=== PATIENT | male | born 1990 ===

== ENCOUNTER 2019-09-16 18:45 | Emergency (ER) | payer OTHER ==
[2019-09-16 18:57] VITALS: BP 135/73; PULSE 105
--- NOTE | 2019-09-16 19:19 | EDM.PDOC ---
ED HPI GENERAL MEDICAL PROBLEM - General Chief Complaint: Upper Extremity Injury/Pain Stated Complaint: RIGHT WRIST Time Seen by Provider: 09/16/19 19:17 Source of Information: Reports: Patient History Limitations: Reports: No Limitations - History of Present Illness INITIAL COMMENTS - FREE TEXT/NARRATIVE: HISTORY AND PHYSICAL: History of present illness: Patient is a 29-year-old male presents to the ED with complaint of right wrist injury. 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 He states he tried catching himself with his hands and injured his right wrist. He states it has progressively gotten more swollen over the past few hours. He denies head or other injury. Review of systems: As per history of present illness and below otherwise all systems reviewed and negative. Past medical history: As per history of present illness and as reviewed below otherwise noncontributory. Surgical history: As per history of present illness and as reviewed below otherwise noncontributory. Social history: No reported history of drug or alcohol abuse. Family history: As per history of present illness and as reviewed below otherwise noncontributory. Physical exam: General: Patient sitting comfortably in no acute distress and nontoxic appearing HEENT: Atraumatic, normocephalic, pupils reactive, negative for conjunctival pallor or scleral icterus, mucous membranes moist, throat clear, neck supple, nontender, trachea midline. No meningeal signs. Lungs: Clear to auscultation, breath sounds equal bilaterally, chest nontender. Heart: S1S2, regular, negative for clicks, rubs, or overt murmur. Abdomen: Soft, nondistended, nontender. Negative for masses or hepatosplenomegaly. Negative for costovertebral tenderness. No rigidity, rebound , guarding. Pelvis: Stable nontender. Genitourinary: Deferred. Rectal: Deferred. Extremities: Swelling to the right wrist without obvious deformity. Skin is intact. Pain to palpation of distal radius and ulna. negative for cords or calf pain. Neurovascular unremarkable. Neuro: Awake, alert, oriented. Cranial nerves II through XII unremarkable. Cerebellum unremarkable. Motor and sensory unremarkable throughout. Exam nonfocal. Notes: Diagnostics: x-ray right wrist and hand Therapeutics: Splint Prescriptions: none Impression: 1. Ice, elevate, and motrin or tylenol as needed 2. Follow up with orthopedics, please call the number provided to schedule an appointment 3. Return to ED as needed as discussed Definitive disposition and diagnosis as appropriate pending reevaluation and review of above. Right Wrist Pain Score (Numeric/FACES): 8 - Related Data Allergies Allergy/AdvReac Type Severity Reaction Status Date / Time No Known Allergies Allergy Verified 09/16/19 18:54 Home Meds: Home Meds . [No Known Home Meds] 03/03/16 [History] Past Medical History - Past Health History Medical/Surgical History: Denies Medical/Surgical History - Infectious Disease History Infectious Disease History: Reports: Chicken Pox Social & Family History - Family History Family Medical History: Noncontributory - Tobacco Use Smoking Status *Q: Former Smoker Used Tobacco, but Quit: Yes Month/Year Tobacco Last Used: 2018 - Caffeine Use Caffeine Use: Reports: Coffee - Recreational Drug Use Recreational Drug Use: No Review of Systems - Review of Systems Review Of Systems: Comprehensive ROS is negative, except as noted in HPI. ED EXAM, GENERAL - Physical Exam Exam: See Below (see dictation) Course - Vital Signs Last Recorded V/S: Last Vital Signs Temp 98.1 F 09/16/19 18:54 Pulse 105 H 09/16/19 18:54 Resp 20 09/16/19 18:54 BP 135/73 09/16/19 18:54 Pulse Ox 96 09/16/19 18:54 Departure - Departure Time of Disposition: 19:59 Disposition: Home, Self-Care 01 Condition: Good Clinical Impression: Avulsion fracture of wrist - Discharge Information Referrals: Olesya Rivera TESTING AND REGULATING TECHNICIAN [Primary Care Provider] - Forms: ED Department Discharge Additional Instructions: The following information is given to patients seen in the emergency department who are being discharged to home. This information is to outline your options for follow-up care. We provide all patients seen in our emergency department with a follow-up referral. The need for follow-up, as well as the timing and circumstances, are variable depending upon the specifics of your emergency department visit. If you don't have a primary care physician on staff, we will provide you with a referral. We always advise you to contact your personal physician following an emergency department visit to inform them of the circumstance of the visit and for follow-up with them and/or the need for any referrals to a consulting specialist. The emergency department will also refer you to a specialist when appropriate. This referral assures that you have the opportunity for follow-up care with a specialist. All of these measure are taken in an effort to provide you with optimal care, which includes your follow-up. Under all circumstances we always encourage you to contact your private physician who remains a resource for coordinating your care. When calling for follow-up care, please make the office aware that this follow-up is from your recent emergency room visit. If for any reason you are refused follow-up, please contact the [facility] Emergency Department at and asked to speak to the emergency department charge nurse. [facility] - [facility] Professional Building [address] [place] [address], [address] [place] [address] 1. Ice, elevate, and motrin or tylenol as needed 2. Follow up with orthopedics, please call the number provided to schedule an appointment 3. Return to ED as needed as discussed Sepsis Event Note - Evaluation Sepsis Screening Result: No Definite Risk - Focused Exam Vital Signs: Vital Signs Temp Pulse Resp BP Pulse Ox 09/16/19 18:54 98.1 F 105 H 20 135/73 96 Date Exam was Performed: 09/16/19 Time Exam was Performed: 20:01
--- NOTE | 2019-09-16 19:52 | CR ---
INDICATION: Hand injury from fall, ice skating TECHNIQUE: Hand radiograph 3 views right COMPARISON: None FINDINGS: Bone: No acute fractures or aggressive bone lesions are identified. Joint: The carpal and metacarpal-phalangeal joints are unremarkable in appearance. The interphalangeal joints are normal in appearance. Soft tissue: Unremarkable. No radiopaque foreign bodies are seen. IMPRESSION: 1. No acute osseous injuries or abnormalities are noted. Dictated by: Reji Connell MD @ 09/16/2019 19:50:36 (Electronically Signed)
--- NOTE | 2019-09-16 19:54 | CR ---
INDICATION: Wrist injury from fall, ice skating TECHNIQUE: Wrist radiograph 3 views right COMPARISON: None FINDINGS: Bone: No acute fractures or aggressive bone lesions are identified. The lateral exam, there is a 3 mm osseous fragment along the dorsal proximal carpal row seen. Joint: The radiocarpal, carpal, and carpometacarpal joints are unremarkable in appearance. Soft tissue: Unremarkable. No radiopaque foreign bodies are seen. IMPRESSION: 1. The lateral exam, there is a 3 mm osseous fragment along the dorsal proximal carpal row seen. This may be a small avulsion fracture fragment. Dictated by Reji Connell MD @ 09/16/2019 7:52:15 PM Dictated by: Reji Connell MD @ 09/16/2019 19:52:19 (Electronically Signed)
== END 2019-09-16 20:19 | disposition home or self-care (01) ==
LOC: MW.ED 18:45
DX: S62.101A Fracture of unspecified carpal bone, right wrist, initial encounter for closed fracture (principal); Z87.891 Personal history of nicotine dependence; W19.XXXA Unspecified fall, initial encounter
CPT/HCPCS: 29125; 73110-26-RT; 73110-RT; 73130-26-RT; 73130-RT; 99283; 99283-25

== ENCOUNTER 2023-09-09 18:46 | Emergency (ER) | payer BC ==
[2023-09-09] MEDS ORDERED: Sodium Chloride 0.9% 10 ML Syringe FLUSH PRN (19:04)
[2023-09-09] MEDS ORDERED: Sodium Chloride 0.9% 2.5 ML Syringe FLUSH PRN (19:04)
[2023-09-09 19:23] LABS: BASOPHILS ABSOLUTE AUTO 0.01 K/uL (0.00-0.20); BASOPHILS PERCENT AUTO 0.2 % (0.0-1.0); EOSINOPHILS ABSOLUTE AUTO 0.08 K/uL (0.00-0.45); EOSINOPHILS PERCENT AUTO 1.7 % (0.0-6.0); HEMATOCRIT 40.5 % (42.0-52.0); HEMOGLOBIN 14.3 g/dL (14.0-18.0); LYMPHOCYTES ABSOLUTE AUTO 1.15 K/uL (1.00-4.80); LYMPHOCYTES PERCENT AUTO 23.9 % (24.0-44.0); MEAN CORPUSCULAR HEMOGLOBIN 29.3 pg (28.0-32.0); MEAN CORPUSCULAR HGB CONC 35.3 g/dL (32.0-36.0); MONOCYTES ABSOLUTE AUTO 0.72 K/uL (0.00-0.80); MONOCYTES PERCENT AUTO 14.9 % (0.0-8.0); NEUTROPHILS ABSOLUTE AUTO 2.86 K/uL (1.80-7.70); NEUTROPHILS PERCENT AUTO 59.3 % (41.0-71.0); PLATELET COUNT,PLT 209 K/uL (150-400); RED BLOOD CELL COUNT 4.88 M/uL (4.52-5.90); WHITE BLOOD CELL COUNT,WBC 4.82 K/uL (3.9-11.3)
[2023-09-09] MEDS ORDERED: Sodium Chloride 0.9% 500 ML IV SCH (19:30)
[2023-09-09] MEDS ORDERED: Sodium Chloride 0.9% 1,000 ML IV STA (19:32)
[2023-09-09] MEDS ORDERED: Acetaminophen 325 MG Tab PO ONE (19:33)
[2023-09-09] MEDS ORDERED: Ketorolac 30 MG/ML SDV IVPUSH ONE (19:33)
[2023-09-09 19:47] LABS: A/G RATIO 1.2 (0.9-1.6); ALANINE AMINOTRANSFERASE,ALT 35 IU/L (14-63); ALBUMIN 3.9 g/dL (3.4-5.0); ALKALINE PHOSPHATASE 67 U/L (46-116); ASPARTATE AMNIOTRANSFERASE,AST 21 IU/L (15-37); BILIRUBIN TOTAL 0.5 mg/dL (0.2-1.0); BLOOD UREA NITROGEN,BUN 13 mg/dL (7.0-18.0); CALCIUM 8.3 mg/dL (8.5-10.1); CHLORIDE,CL 104 mmol/L (98-107); CREATININE 1.3 mg/dL (0.8-1.3); EST CRCL DRUG DOSING (CG) 95.69 mL/min; GLUCOSE RANDOM 106 mg/dL (74-106); POTASSIUM,K 4.1 mmol/L (3.5-5.1); PROTEIN TOTAL,TP 7.2 g/dL (6.4-8.2); SODIUM,NA 141 mmol/L (136-148)
[2023-09-09 19:49] LABS: ESTIMATED GFR 74 mL/min (>60)
[2023-09-09 20:01] LABS: CORONAVIRUS COVID-19 NAA NEGATIVE (NEGATIVE); INFLUENZA A NAA NEGATIVE (NEGATIVE); INFLUENZA B NAA POSITIVE (NEGATIVE)
[2023-09-09 20:29] VITALS: BP 117/66; PULSE 90
== END 2023-09-09 20:25 | disposition home or self-care (01) ==
LOC: MW.ED 18:46
DX: J11.1 Influenza due to unidentified influenza virus with other respiratory manifestations (principal); Z20.822 Contact with and (suspected) exposure to COVID-19
CPT/HCPCS: 0240U; 36415; 71046; 80053; 84484; 85025; 93005; 96361; 96374; 99285; A9270; J1885; J3490; J7030